=== PATIENT | male | born 1960 ===

== ENCOUNTER 2021-02-12 11:44 | Outpatient (CLI) | payer SELFPAY ==
--- NOTE | 2021-02-12 12:00 | XRR_ITS ---
PROCEDURE INFORMATION: Exam: XR Abdomen Exam date and time: 02/12/2021 12:00 PM Age: 60 years old Clinical indication: Abdominal pain; Patient HX: History--possible kidney stone recently; Hematuria; PT was told he still has stones TECHNIQUE: Imaging protocol: XR of the abdomen. Views: Frontal supine view of the abdomen. 1 View. COMPARISON: No relevant prior studies available. FINDINGS: Gastrointestinal tract: No dilated gas-filled loops of bowel. Organs: No radiopaque renal or ureteral calculi are identified. Vasculature: Small calcific densities in the inferior pelvis in the midline and bilaterally in the lateral pelvis, favored to be due to phleboliths. Bones/joints: Curvature of the lumbar spine convex to the right associated with mild multilevel osteophyte formation. XR/XR KUB [id number] IMPRESSION: No definite radiopaque renal or ureteral calculi. Consider noncontrast CT ABDOMEN/PELVIS.
== END 2021-02-12 11:45 | disposition home or self-care (01) ==
PROVIDERS: PCP Nurse Practitioner Family; Visit Provider Urology
DX: N20.0 Calculus of kidney (principal)
CPT/HCPCS: 74018; 81003